=== PATIENT | male | born 1955 | race Caucasian/White ===

== ENCOUNTER 2018-08-19 09:27 | Emergency (ER) | payer MEDICARE, OTHER ==
[~2018-08-19] VITALS: Ht 170.2 cm; Wt 114.3 kg
[2018-08-19] MEDS ORDERED: GABAPENTIN 100100 MG PO (09:41)
[2018-08-19] MEDS ORDERED: CYMBALTA20 MG PO (09:41)
[2018-08-19] MEDS ORDERED: PRILOSEC 10MG C10 MG PO (09:41)
[2018-08-19] MEDS ORDERED: CARAFATE 1 GM TA1 G1 PO (09:41)
[2018-08-19] MEDS ORDERED: LISINOPRIL10 MG PO (09:42)
[2018-08-19] MEDS ORDERED: METFORMIN HCL500 MG PO (09:42)
[2018-08-19] MEDS ORDERED: LIPITOR10 MG PO (09:42)
[2018-08-19 10:35] VITALS: BP 135/83
== END 2018-08-19 10:35 | disposition home or self-care (01) ==
LOC: M.ERS 09:27
DX: S61.210A Laceration without foreign body of right index finger without damage to nail, initial encounter (principal); E78.5 Hyperlipidemia, unspecified; I10 Essential (primary) hypertension; E11.9 Type 2 diabetes mellitus without complications; W26.0XXA Contact with knife, initial encounter; Y93.89 Activity, other specified; Y92.89 Other specified places as the place of occurrence of the external cause; Y99.8 Other external cause status

== ENCOUNTER 2018-10-20 11:46 | Emergency (ER) | payer MEDICARE, BC ==
[~2018-10-20] VITALS: Ht 170.2 cm; Wt 102.1 kg
[~2018-10-20 11:46] MED LIST: CARAFATE 1 GM TA1 G1 PO; CYMBALTA20 MG PO; LIPITOR10 MG PO; LISINOPRIL10 MG PO; METFORMIN HCL500 MG PO; NEURONTIN 400400 M1 PO; PRILOSEC 10MG C10 MG PO
[2018-10-20] MEDS ORDERED: ASPIR 8181 MG PO (12:04)
[2018-10-20] MEDS ORDERED: NEPHROCAPS SOFT1 CAP PO (12:05)
[2018-10-20] MEDS ORDERED: LIORESAL 10 MG10 MG PO (12:05)
[2018-10-20] MEDS ORDERED: CLONAZEPAM 0.50.5 M1 PO (12:06)
[2018-10-20] MEDS ORDERED: CALCIUM-VITAMI1 EACH PO (12:06)
[2018-10-20] MEDS ORDERED: IRON325 PO (12:07)
[2018-10-20] MEDS ORDERED: VITAMIN B-12500 MCG PO (12:07)
[2018-10-20] MEDS ORDERED: MELATONIN1 MG PO (12:08)
[2018-10-20] MEDS ORDERED: CENTRUM SILVER1 EAC2 PO (12:09)
[2018-10-20] MEDS ORDERED: VITAMIN D3400 UNIT PO (12:09)
[2018-10-20 13:15] LABS: URINE BILIRUBIN NEGATIVE (Negative); URINE BLOOD NEGATIVE (Negative); URINE CLARITY CLEAR; URINE COLOR YELLOW; URINE GLUCOSE-RANDOM NEGATIVE (Negative); URINE KETONES TRACE (Negative); URINE LEUKOCYTES-REFLEX NEGATIVE (Negative); URINE NITRITE-REFLEX NEGATIVE (Negative); URINE PROTEIN NEGATIVE (Negative); URINE UROBILINOGEN 0.2 E.U./dl (0.2-1.0)
[2018-10-20 13:25] LABS: AMP/METHAMP Negative (Negative); BARBITURATES Negative (Negative); BENZODIAZEPINES Negative (Negative); COCAINE Negative (Negative); METHADONE Negative (Negative); OPIATES Negative (Negative); PCP Negative (Negative); THC Negative (Negative)
[2018-10-20 13:27] LABS: ABSOLUTE BASOPHILS 0.1 thou/uL (0.0-0.2); ABSOLUTE EOSINOPHILS 0.2 thou/uL (0.0-0.7); ABSOLUTE LYMPHOCYTES 1.5 thou/uL (0.8-5.3); ABSOLUTE MONOCYTES 0.6 thou/uL (0.0-1.2); ABSOLUTE NEUTROPHILS 9.1 thou/uL (1.6-8.1); BASOPHILS 0.5 %; EOSINOPHILS 1.8 %; HEMOGLOBIN 13.1 gm/dL (14.0-18.0); LYMPHOCYTES 13.4 %; MCHC 33.7 g/dL (28.0-37.0); MONOCYTES 4.8 %; MPV 8.6 fl. (7.2-11.1); NUCLEATED RBCS 0 /100WBC; PLATELET COUNT* 328 thou/uL (150-400); POLYS 79.5 %; RBC 4.24 mil/uL (4.50-6.00); RDW-CV 12.9 % (10.5-14.5); WBC 11.5 thou/uL (4.0-11.0)
[2018-10-20 13:58] LABS: ANION GAP 8 mmol/L (7-16); BUN 24 mg/dL (7-18); CALCIUM 8.3 mg/dL (8.5-10.1); CHLORIDE 99 mmol/L (98-107); CO2 25 mmol/L (21-32); CREATININE 1.1 mg/dL (0.6-1.3); GLUCOSE 103 mg/dL (70-99); POTASSIUM 4.4 mmol/L (3.5-5.1); SODIUM 132 mmol/L (136-145)
[2018-10-20 14:04] LABS: ALBUMIN 3.5 g/dL (3.4-5.0); ALKALINE PHOSPHATASE 104 U/L (46-116); LIPASE 134 U/L (73-393); SGOT 20 U/L (15-37); SGPT 29 U/L (30-65); TOTAL BILIRUBIN 0.5 mg/dL (<0.1-1.0); TOTAL PROTEIN 7.1 g/dL (6.4-8.2); TROPONIN-I LEVEL <0.06 ng/mL (<0.06)
[2018-10-20 16:00] VITALS: BP 132/68
--- NOTE | 2018-10-21 10:22 | EKG ---
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
== END 2018-10-20 16:00 | disposition left against medical advice (07) ==
LOC: M.ERS 11:46
PROVIDERS: Physician Assistant
DX: K92.0 Hematemesis (principal); E78.5 Hyperlipidemia, unspecified; I10 Essential (primary) hypertension; E11.9 Type 2 diabetes mellitus without complications; Z79.899 Other long term (current) drug therapy

== ENCOUNTER 2018-10-28 18:18 | Inpatient (IN) | payer MEDICARE, BC ==
[~2018-10-28] VITALS: Ht 170.2 cm; Wt 103.6 kg
--- NOTE | ~2018-10-28 | PROC ---
[address] [address] PROCEDURE REPORT Name: SAHIL BARRIGA Room: [address] IN M.R.#: [id number] Admission: 10/28/18 Attend Phys: Sahil Chandra MD Discharge: 10/30/18 Date of : 59 Report #: [id number] THIS REPORT FOR: //name// For GI report, please see the Provation report in Perceptive 7 content. By: [id number] Records Staff [facility] /YESENIA
--- NOTE | ~2018-10-28 | CON ---
[address] [address] CONSULTATION Name: SAHIL BARRIGA Room: [address] IN M.R.#: [id number] Admission: 10/28/18 Attend Phys: Sahil Chandra MD Discharge: Date of : 59 Report #: [id number] THIS REPORT FOR: //name// CC: Walker Chandra HISTORY OF PRESENT ILLNESS: This is a pleasant 63-year-old gentleman with past medical history significant for hypertension, hyperlipidemia, gastric bypass surgery, and depression, who is presenting for evaluation of hematemesis. The patient reports that he was in his usual state of health until 2 days back when he began experiencing epigastric abdominal discomfort followed by nausea and emesis of red-colored blood. He presented 1 week back to the ER with similar episode of hematemesis and also reports dark-colored stools during the course of the last week. The patient denies any weight loss, dysphagia or other alarm symptoms. The patient had his last EGD in 2015 and had his colonoscopy in 2014. 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 In 2004, the patient had gastric bypass surgery for weight loss. PAST MEDICAL HISTORY: The patient has history of hypertension, hyperlipidemia, diabetes. PAST SURGICAL HISTORY: The patient has a history of gastric bypass surgery. SOCIAL HISTORY: The patient denies smoking, alcohol or recreational drug use. FAMILY HISTORY: There is no family history of colorectal cancer or gastric or esophageal malignancy. REVIEW OF SYSTEMS: A 10-point review of systems is negative except for what was mentioned in the HPI. PHYSICAL EXAMINATION: VITAL SIGNS: Temperature 36.6, pulse rate 69, respirations 18, blood pressure 109/60, pulse ox 95%. GENERAL: The patient is alert, awake, oriented times 3. HEENT: Pupils are equal, round, reactive to light and accommodation. Mucous membranes are moist. NECK: There is no congestion. LUNGS: Clear to auscultation bilaterally. CARDIOVASCULAR: Rate and rhythm regular. S1, S2 present. ABDOMEN: Soft. There is no distention, guarding or rigidity. EXTREMITIES: Warm, well perfused. There is no edema. LABORATORY DATA: Hemoglobin 8.5, baseline hemoglobin 13, hematocrit 25.0, platelet count 446, WBC count 4.6. Sodium 136, potassium 4.3, chloride 103, [place] [address] CONSULTATION Name: SAHIL BARRIGA Room: [address] IN [facility]#: [id number] Admission: 10/28/18 Attend Phys: Sahil Chandra MD Discharge: Date of : 59 Report #: [id number] bicarbonate 32, BUN 6, creatinine 0.8, total bilirubin 0.4, AST 21, ALT 31, alkaline phosphatase 100. IMAGING: Abdomen and pelvis CT: No acute abnormalities. No inflammatory mass or free fluid. Evidence of prior gastric surgery. No evidence of inflammation. ASSESSMENT AND PLAN: This is a pleasant 63-year-old gentleman with past medical history of gastric bypass surgery, was presenting with a couple of episodes of hematemesis and intermittent melena over the last week. Hemoglobin dropped from baseline of 13 to around 8 at this time. We will proceed with upper gastrointestinal endoscopy today and make further recommendations based on the results of the upper gastrointestinal endoscopy. Continue Protonix for now. By: 1825 [id number] Alegria MD /nt
[~2018-10-28 18:18] MED LIST changes: +ASPIR 8181 MG PO; +CALCIUM-VITAMI1 EACH PO; +CENTRUM SILVER1 EAC2 PO; +CLONAZEPAM 0.50.5 M1 PO; +IRON325 PO; +LIORESAL 10 MG10 MG PO; +MELATONIN1 MG PO; +NEPHROCAPS SOFT1 CAP PO; +VITAMIN B-12500 MCG PO; +VITAMIN D3400 UNIT PO
[2018-10-28 18:28] VITALS: BP 109/58
[2018-10-28 18:38] LABS: URINE BILIRUBIN NEGATIVE (Negative); URINE BLOOD NEGATIVE (Negative); URINE CLARITY CLEAR; URINE COLOR YELLOW; URINE GLUCOSE-RANDOM NEGATIVE (Negative); URINE KETONES NEGATIVE (Negative); URINE LEUKOCYTES-REFLEX NEGATIVE (Negative); URINE NITRITE-REFLEX NEGATIVE (Negative); URINE PROTEIN NEGATIVE (Negative); URINE SPECIFIC GRAVITY <= 1.005 (1.005-1.030); URINE UROBILINOGEN 0.2 E.U./dl (0.2-1.0)
[2018-10-28 18:55] LABS: ABSOLUTE BASOPHILS 0.1 thou/uL (0.0-0.2); ABSOLUTE EOSINOPHILS 0.2 thou/uL (0.0-0.7); ABSOLUTE LYMPHOCYTES 2.4 thou/uL (0.8-5.3); ABSOLUTE MONOCYTES 0.5 thou/uL (0.0-1.2); ABSOLUTE NEUTROPHILS 3.6 thou/uL (1.6-8.1); BASOPHILS 1.2 %; EOSINOPHILS 3.7 %; HEMATOCRIT 25.9 % (42.0-52.0); HEMOGLOBIN 8.8 gm/dL (14.0-18.0); LYMPHOCYTES 34.9 %; MCH 32.4 pg (26.0-34.0); MCHC 34.1 g/dL (28.0-37.0); MONOCYTES 7.3 %; NUCLEATED RBCS 0 /100WBC; PLATELET COUNT* 442 thou/uL (150-400); POLYS 52.9 %; RBC 2.73 mil/uL (4.50-6.00); RDW-CV 14.3 % (10.5-14.5); WBC 6.8 thou/uL (4.0-11.0)
[2018-10-28 19:04] LABS: CALCIUM 8.7 mg/dL (8.5-10.1); POTASSIUM 3.8 mmol/L (3.5-5.1)
[2018-10-28 19:13] LABS: ALBUMIN 3.7 g/dL (3.4-5.0); TOTAL BILIRUBIN 0.4 mg/dL (<0.1-1.0)
[2018-10-28 21:15] VITALS: BP 120/61
[2018-10-28 21:23] VITALS: BP 106/60
[2018-10-28] MEDS ORDERED: TOPROL XL25 MG PO (21:45)
[2018-10-28] MEDS ORDERED: NITROGLYCERIN0.4 MG SUBLING (21:45)
[2018-10-28] MEDS ORDERED: OMEPRAZOLE40 MG PO (21:46)
[2018-10-29 00:10] VITALS: BP 138/75
[2018-10-29 04:00] VITALS: BP 123/70
[2018-10-29 08:00] VITALS: BP 115/64
--- NOTE | 2018-10-29 09:00 | EKG ---
[place] [address] ELECTROCARDIOGRAM REPORT Name: SAHIL BARRIGA Room: [address] ADM IN .R.#: [id number] Admission: 10/28/18 Attend Phys: Sahil Chandra MD Discharge: Date of : 59 Report #: [id number] THIS REPORT FOR: //name// [facility] ED Test Date: 2018-10-28 Test Time: 20:53:47 Pat Name: SAHIL BARRIGA Department: Room: [facility] Gender: M Managed Services Consultant: DONALD : 1955 Requested By: Vanesa Presley Order Number: [id number] MD: Tod Cooney Measurements Intervals [place] Rate: 66 P: 35 VT: 194 QRS: 11 QRSD: 108 T: 29 QT: 424 QTc: 445 Interpretive Statements Sinus rhythm Compared to ECG 10/20/2018 13:10:03 No significant changes Electronically Signed On 10-29-2018 8:59:56 RADIOLOGIST by Tod Cooney [email or web address] <ELECTRONICALLY SIGNED> By: Tod Cooney MD, [facility] 10/29/18 [phone] Tod Cooney MD, FAC /EPI
[2018-10-29 10:32] VITALS: BP 115/64
[2018-10-29 15:05] LABS: ABSOLUTE BASOPHILS 0.1 thou/uL (0.0-0.2); ABSOLUTE EOSINOPHILS 0.2 thou/uL (0.0-0.7); ABSOLUTE LYMPHOCYTES 1.4 thou/uL (0.8-5.3); ABSOLUTE MONOCYTES 0.4 thou/uL (0.0-1.2); ABSOLUTE NEUTROPHILS 2.5 thou/uL (1.6-8.1); BASOPHILS 1.2 %; EOSINOPHILS 4.9 %; HEMOGLOBIN 8.5 gm/dL (14.0-18.0); LYMPHOCYTES 31.3 %; MCH 32.1 pg (26.0-34.0); MCV 94.5 fL (80.0-100.0); MONOCYTES 8.5 %; MPV 7.4 fl. (7.2-11.1); NUCLEATED RBCS 0 /100WBC; PLATELET COUNT* 446 thou/uL (150-400); POLYS 54.1 %; RBC 2.64 mil/uL (4.50-6.00); RDW-CV 15.1 % (10.5-14.5); WBC 4.6 thou/uL (4.0-11.0)
[2018-10-29 15:19] LABS: CALCIUM 8.5 mg/dL (8.5-10.1); CREATININE 0.8 mg/dL (0.6-1.3); MAGNESIUM 1.9 mg/dL (1.8-2.4); POTASSIUM 4.3 mmol/L (3.5-5.1)
[2018-10-29 15:57] VITALS: BP 109/60
[2018-10-29] MEDS ORDERED: PROTONIX40 M2 PO (19:02)
[2018-10-29 19:59] VITALS: BP 110/62
[2018-10-30] VITALS: BP 116/77
[2018-10-30 04:00] VITALS: BP 117/64
[2018-10-30 05:27] LABS: HEMATOCRIT 25.7 % (42.0-52.0); HEMOGLOBIN 8.8 gm/dL (14.0-18.0); MCH 32.2 pg (26.0-34.0); MCHC 34.3 g/dL (28.0-37.0); MCV 93.9 fL (80.0-100.0); MPV 7.5 fl. (7.2-11.1); RBC 2.74 mil/uL (4.50-6.00); RDW-CV 15.3 % (10.5-14.5); WBC 4.9 thou/uL (4.0-11.0)
[2018-10-30 05:38] LABS: CALCIUM 8.8 mg/dL (8.5-10.1); CREATININE 0.8 mg/dL (0.6-1.3); POTASSIUM 4.4 mmol/L (3.5-5.1)
[2018-10-30 08:00] VITALS: BP 117/67
[2018-10-30 11:23] VITALS: BP 109/62
[2018-10-30 16:00] VITALS: BP 115/59
[2018-10-30 16:22] VITALS: BP 109/62
== END 2018-10-30 18:00 | disposition home or self-care (01) | DRG 384 ==
LOC: M.ERS 18:18 → M.TBA-ER 19:42 → M.2W 20:38
PROVIDERS: Family Medicine; Nurse Practitioner Family; ADMIT Internal Medicine
PROC: 0DJ08ZZ Inspection of Upper Intestinal Tract, Via Natural or Artificial Opening Endoscopic (ICD-10-PCS; principal; 2018-10-29)
DX: K25.9 Gastric ulcer, unspecified as acute or chronic, without hemorrhage or perforation (principal); D62 Acute posthemorrhagic anemia; E78.5 Hyperlipidemia, unspecified; F32.9 Major depressive disorder, single episode, unspecified; N18.2 Chronic kidney disease, stage 2 (mild); D50.9 Iron deficiency anemia, unspecified; I12.9 Hypertensive chronic kidney disease with stage 1 through stage 4 chronic kidney disease, or unspecified chronic kidney disease; E11.22 Type 2 diabetes mellitus with diabetic chronic kidney disease; I48.2 Chronic atrial fibrillation; Z98.84 Bariatric surgery status; Z87.891 Personal history of nicotine dependence; Z90.49 Acquired absence of other specified parts of digestive tract; Z79.82 Long term (current) use of aspirin; Z79.899 Other long term (current) drug therapy

== ENCOUNTER 2018-12-09 07:25 | Emergency (ER) | payer MEDICARE, BC ==
[~2018-12-09] VITALS: Ht 170.2 cm; Wt 98.9 kg
[~2018-12-09 07:25] MED LIST changes: +NITROGLYCERIN0.4 MG SUBLING; +OMEPRAZOLE40 MG PO; +PROTONIX40 M2 PO; +TOPROL XL25 MG PO
[2018-12-09 07:47] LABS: ABSOLUTE EOSINOPHILS 0.1 thou/uL (0.0-0.7); ABSOLUTE LYMPHOCYTES 1.5 thou/uL (0.8-5.3); ABSOLUTE MONOCYTES 0.6 thou/uL (0.0-1.2); ABSOLUTE NEUTROPHILS 5.5 thou/uL (1.6-8.1); BASOPHILS 0.4 %; EOSINOPHILS 1.6 %; HEMATOCRIT 41.2 % (42.0-52.0); LYMPHOCYTES 19.5 %; MCHC 33.9 g/dL (28.0-37.0); MCV 91.2 fL (80.0-100.0); MONOCYTES 7.4 %; NUCLEATED RBCS 0 /100WBC; PLATELET COUNT* 352 thou/uL (150-400); POLYS 71.1 %; RBC 4.52 mil/uL (4.50-6.00); RDW-CV 13.6 % (10.5-14.5); WBC 7.7 thou/uL (4.0-11.0)
[2018-12-09 07:59] LABS: ALBUMIN 3.8 g/dL (3.4-5.0); ALKALINE PHOSPHATASE 110 U/L (46-116); ANION GAP 7 mmol/L (7-16); BUN 16 mg/dL (7-18); CALCIUM 8.6 mg/dL (8.5-10.1); CHLORIDE 97 mmol/L (98-107); CO2 29 mmol/L (21-32); CREATININE 0.9 mg/dL (0.6-1.3); GLUCOSE 102 mg/dL (70-99); LIPASE 140 U/L (73-393); POTASSIUM 4.3 mmol/L (3.5-5.1); SGOT 21 U/L (15-37); SGPT 29 U/L (30-65); SODIUM 133 mmol/L (136-145); TOTAL BILIRUBIN 0.7 mg/dL (<0.1-1.0); TOTAL PROTEIN 7.6 g/dL (6.4-8.2); TROPONIN-I LEVEL <0.06 ng/mL (<0.06)
[2018-12-09] MEDS ORDERED: HYDROCODONE-AP1 EAC6 PO (09:30)
[2018-12-09] MEDS ORDERED: ZOFRAN ODT4 MG DISSOLVE (09:30)
[2018-12-09 09:49] VITALS: BP 128/80
--- NOTE | 2018-12-11 14:55 | EKG ---
[place] [address] ELECTROCARDIOGRAM REPORT Name: BARRIGA,SAHIL Espinal Room: [facility]#: [id number] Admission: 12/09/18 Attend Phys: Discharge: 12/09/18 Date of : 59 Report #: [id number] THIS REPORT FOR: //name// [facility] ED Test Date: 2018-12-09 Test Time: 07:47:36 Pat Name: SAHIL BARRIGA Department: Room: Gender: Application Manager: Jamaal FELDER : 1955 Requested By: Mika Ribera Order Number: [id number] MD: Jay Hinojosa Measurements Intervals [place] Rate: 72 P: 42 IN: 170 QRS: 9 QRSD: 108 T: 35 QT: 389 QTc: 426 Interpretive Statements Sinus rhythm Atrial premature complex Compared to ECG 10/28/2018 20:53:47 Atrial premature complex(es) now present Electronically Signed On 12-11-2018 14:55:49 CDT by Jay Hinojosa [email or web address] <ELECTRONICALLY SIGNED> By: Jay Hinojosa MD, [facility] 12/11/18 1455 6 Jay Hinojosa MD, [facility] /EPI
== END 2018-12-09 09:51 | disposition home or self-care (01) ==
LOC: M.ERS 07:25
PROVIDERS: Emergency Medicine Emergency Medical Services
DX: R10.84 Generalized abdominal pain (principal); I10 Essential (primary) hypertension; E78.5 Hyperlipidemia, unspecified; E11.9 Type 2 diabetes mellitus without complications; Z98.84 Bariatric surgery status